=== PATIENT | female | born 1980 | race Caucasian/White ===

== ENCOUNTER 2018-04-06 14:17 | Inpatient (IN) | payer MEDICAID, SELFPAY ==
[2018-04-06 14:18] VITALS: BP 141/69; PULSE 102; RESP 16; TEMP 36.3; O2SAT 99; BMI 23.2
--- NOTE | 2018-04-06 15:31 | ED.VISSUMM ---
- ER Visit Summary Date of Service: 04/06/18 Chief Complaint: Left wrist swelling History of Present Illness: The patient is a 37 F who presents in the accompaniment of Elaina from [facility]. Patient is checking in for heroin detox. Patient injected heroin into her left volar wrist last night. This morning she had some mild erythema and swelling at the injection site. She notes minimally tender. No fevers. She believes is just related to extravasation of the heroin. She denies any other injuries or concerns. Physical Examination: Afebrile vital signs are stable There is 1/2 cm area of swelling over the volar wrist. The air does not move with movement of the fingers to suggest a ganglion cyst. There is minimal overlying erythema there is no lymphangitic streaking. It is not pulsatile. Emergency Department Course and Treatment: Bedside ultrasound does not demonstrate any significant debris in this fluid collection. There is no vascular flow in the fluid collection. At this point I think this is most likely local reaction to extravasation of the heroin outside the pain that she injected into. However given the erythema and the potential for infection we will go ahead and cover with Keflex and Bactrim. Hospitalist will be contacted to admit the patient to [facility]. Impression: 1. Local reaction/abscess left wrist to heroin 2. Heroin abuse This note was generated with [employer] dictation software. It may contain incorrect words, spelling, and punctuation that were not noted in review of the chart prior to signing ED Disposition - Plan for ED Patient: Chief Complaint: Abscess Referrals: Nelly Gerber, KEM-C [Primary Care Provider] -
--- NOTE | 2018-04-06 15:36 | ED.DCSUM_ITS ---
- ER Visit Summary Date of Service: 04/06/18 Chief Complaint: Left wrist swelling History of Present Illness: The patient is a 37 F who presents in the accompaniment of Elaina from [facility]. Patient is checking in for heroin detox. Patient injected heroin into her left volar wrist last night. This morning she had some mild erythema and swelling at the injection site. She notes minimally tender. No fevers. She believes is just related to extravasation of the heroin. She denies any other injuries or concerns. Physical Examination: Afebrile vital signs are stable There is 1/2 cm area of swelling over the volar wrist. The air does not move with movement of the fingers to suggest a ganglion cyst. There is minimal overlying erythema there is no lymphangitic streaking. It is not pulsatile. Emergency Department Course and Treatment: Bedside ultrasound does not demonstrate any significant debris in this fluid collection. There is no vascular flow in the fluid collection. At this point I think this is most likely local reaction to extravasation of the heroin outside the pain that she injected into. However given the erythema and the potential for infection we will go ahead and cover with Keflex and Bactrim. Hospitalist will be contacted to admit the patient to [facility]. Impression: 1. Local reaction/abscess left wrist to heroin 2. Heroin abuse This note was generated with [employer] dictation software. It may contain incorrect words, spelling, and punctuation that were not noted in review of the chart prior to signing ED Disposition - Plan for ED Patient: Chief Complaint: Abscess Referrals: Nelly Gerber, [facility] [Primary Care Provider] -
[2018-04-06] MEDS: Cephalexin 250 MG Capsule 500 MG PO (16:00)
[2018-04-06] MEDS: Smz/Tmp Ds Tablet 1 TABLET PO (16:00)
[2018-04-06 16:02] VITALS: BMI 23.2
[2018-04-06 16:46] VITALS: BP 118/79; PULSE 93; RESP 16; O2SAT 98
--- NOTE | 2018-04-06 16:52 | PCM.HP.STD ---
<Mary Pike - Last Filed: 04/06/18 17:17> Problem List (1) Depression Status: Chronic (2) Tobacco dependence Status: Chronic (3) Acute opioid withdrawal Status: Acute (4) Heroin dependence Status: Chronic (5) Insomnia Status: Chronic History of Present Illness Date of Admission: 04/06/18 Chief Complaint: Opioid withdrawal. The patient is a 37 year old F who presents to [facility] for opioid withdrawal. Patient was referred to ER from [facility] staff for evaluation of left wrist swelling. Patient states left wrist area of swelling occurred immediately during/after attempted heroin injection and she states she missed the vein. She denies pain in that area. No redness at site. Denies fever, chills. Patient currently uses heroin 1 g per day and has been using forearm approximately 4 years. She states she did have a 9 month period of sobriety following previous detox program approximately 1 year ago. Patient states her uses as well. She states he plans to get treatment after her and she hopes to leave the relationship at that time. Currently complains of nausea, abdominal cramping, restless legs and anxiety. She last used heroin last evening around 6 PM. She also admits to using marijuana occasionally. Denies other drug use or alcohol use. Her other past medical history includes tobacco dependence (half pack per day smoker), depression, anxiety, insomnia. Bedside ultrasound completed on left wrist without evidence of infectious etiology. She was however started on Keflex and Bactrim by ER. 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 Denies: Constipation, Diarrhea, Vomiting Genitourinary: Denies: Dysuria Musculoskeletal: Denies: Joint Pain, Joint Tenderness Skin: Reports: - - Lump/swelling left wrist. Denies: Rash, Wounds Neurological: Denies: Numbness, Tingling, Focal weakness Psychiatric: Reports: Anxiety, Depression Hematologic/ Lymphatic: Denies: Easy Bruising, Easy Bleeding VTE Information - Inpt Only VTE Present on Admission: No VTE Mechan Device Prophylaxis: None VTE Pharm Prophylaxis ordered?: No Reason prophylaxis not ordered:: Treatment Not Indicated - Physical Exam General: Alert, Oriented x3, Cooperative, No apparent distress HEENT: Atraumatic, PERRLA, EOMI, Normocephalic Oral: Moist Mucosa Neck: Supple, No JVD, Negative Carotid Bruits Lungs: Clear to auscultation, Normal air movement Cardiovascular: Normal S1, Normal S2, No murmurs, Tachycardic Abdomen: Bowel Sounds Present, Soft, Non Tender, Non-Distended Extremities: No clubbing, No cyanosis, No edema, Capillary Refill Less than 3 Seconds Skin: No rashes, No breakdown, - - Left wrist swelling/nodule. No redness, tenderness, drainage. Musculoskeletal: No Tenderness to Palpation of Joints or Extremities Neurological: Cranial nerves II-XII grossly intact, Neuro grossly intact Psych/Mental Status: Normal Affect, Appropriate Vital Signs Temp Pulse Resp BP Pulse Ox 97.3 F L 93 16 118/79 98 04/06/18 14:18 04/06/18 16:46 04/06/18 16:46 04/06/18 16:46 04/06/18 16:46 Oxygen Delivery Method Room Air Weight: 57.606 kg Body Mass Index (BMI) 23.2 Laboratory Tests Past 24 Hrs 04/06/18 16:35 WBC Cancelled Corrected WBC Cancelled RBC Cancelled Hgb Cancelled Hct Cancelled MCV Cancelled MCH Cancelled MCHC Cancelled RDW Cancelled RDW Differential Cancelled Plt Count Cancelled MPV Cancelled Immature Gran % (Auto) Cancelled Neut % (Auto) Cancelled Lymph % (Auto) Cancelled Marin[place] % (Auto) Cancelled Eos % (Auto) Cancelled Baso % (Auto) Cancelled Immature Gran # (Auto) Cancelled Absolute Neuts (auto) Cancelled Absolute Lymphs (auto) Cancelled Absolute Monos (auto) Cancelled Total Counted Cancelled Neutrophils % (Manual) Cancelled Band Neutrophils % Cancelled Lymphocytes % (Manual) Cancelled Monocytes % (Manual) Cancelled Eosinophils % (Manual) Cancelled Basophils % (Manual) Cancelled Metamyelocytes % Cancelled Myelocytes % Cancelled Promyelocytes % Cancelled Blast Cells % Cancelled Plasma Cell % (Manual) Cancelled Other Cells % Cancelled Lymphocytes # Cancelled Nucleated RBCs/100 WBC Cancelled Differential Comment Cancelled Diff Path Review Cancelled Hypersegmented Neuts Cancelled Atypical Lymphocytes Cancelled Reactive Lymphocytes Cancelled Smudge Cells Cancelled Eosinophilia # Cancelled Basophilia # Cancelled Toxic Granulation Cancelled Dohle Bodies Cancelled Tommie Rods Cancelled Platelet Estimate Cancelled Plt Morphology Comment Cancelled RBC Morphology Cancelled Polychromasia Cancelled Hypochromasia Cancelled Poikilocytosis Cancelled Basophilic Stippling Cancelled Anisocytosis Cancelled Microcytosis Cancelled Macrocytosis Cancelled Spherocytes Cancelled Sickle Cells Cancelled Target Cells Cancelled Tear Drop Cells Cancelled Ovalocytes Cancelled Stomatocytes Cancelled [place] Bodies Cancelled Minh Cells Cancelled Bite Cells Cancelled Acanthocytes (Spur) Cancelled Rouleaux Cancelled Schistocytes Cancelled Assessment/Plan All Active Problems Acute opioid withdrawal (Acute) 1. Acute opioid withdrawal with history of opioid abuse-medical stabilization per protocol. Unable to obtain lab work on admission due to poor veins. Patient currently uses heroin 1 g/day. She requests social work consult to discuss leaving her at discharge. Continue to monitor. 2. Tobacco dependence-encouraged smoking cessation. Nicotine replacement patch if desired. Denies need at this time. 3. Left wrist nodule/swelling-no signs of infection. Continue to monitor. No antibiotics necessary at this time. Bedside ultrasound and ER without evidence of infectious etiology. 4. Anxiety/depression-previously on regimen which she has no longer taking. Citalopram listed on home medication list. Patient states she is no longer taking. 5. Insomnia-continue home amitriptyline regimen. DVT prophylaxis-not indicated. This patient was seen by ALMA Hamlin under the supervision of Dr. Brown. <KevinKathy E - Last Filed: 04/06/18 17:31> History of Present Illness The patient is a 37 year old F [] Past Medical History Allergies No Known Allergies Allergy (Verified 04/04/17 12:15) - Physical Exam Vital Signs Temp Pulse Resp BP Pulse Ox 97.3 F L 91 14 116/64 99 04/06/18 14:18 04/06/18 17:17 04/06/18 17:17 04/06/18 17:17 04/06/18 17:17 Oxygen Delivery Method Room Air Weight: 127 lb Body Mass Index (BMI) 23.2 Laboratory Tests Past 24 Hrs 04/06/18 16:35 WBC Cancelled Corrected WBC Cancelled RBC Cancelled Hgb Cancelled Hct Cancelled MCV Cancelled MCH Cancelled MCHC Cancelled RDW Cancelled RDW Differential Cancelled Plt Count Cancelled MPV Cancelled Immature Gran % (Auto) Cancelled Neut % (Auto) Cancelled Lymph % (Auto) Cancelled Marin[place] % (Auto) Cancelled Eos % (Auto) Cancelled Baso % (Auto) Cancelled Immature Gran # (Auto) Cancelled Absolute Neuts (auto) Cancelled Absolute Lymphs (auto) Cancelled Absolute Monos (auto) Cancelled Total Counted Cancelled Neutrophils % (Manual) Cancelled Band Neutrophils % Cancelled Lymphocytes % (Manual) Cancelled Monocytes % (Manual) Cancelled Eosinophils % (Manual) Cancelled Basophils % (Manual) Cancelled Metamyelocytes % Cancelled Myelocytes % Cancelled Promyelocytes % Cancelled Blast Cells % Cancelled Plasma Cell % (Manual) Cancelled Other Cells % Cancelled Lymphocytes # Cancelled Nucleated RBCs/100 WBC Cancelled Differential Comment Cancelled Diff Path Review Cancelled Hypersegmented Neuts Cancelled Atypical Lymphocytes Cancelled Reactive Lymphocytes Cancelled Smudge Cells Cancelled Eosinophilia # Cancelled Basophilia # Cancelled Toxic Granulation Cancelled Dohle Bodies Cancelled Tommie Rods Cancelled Platelet Estimate Cancelled Plt Morphology Comment Cancelled RBC Morphology Cancelled Polychromasia Cancelled Hypochromasia Cancelled Poikilocytosis Cancelled Basophilic Stippling Cancelled Anisocytosis Cancelled Microcytosis Cancelled Macrocytosis Cancelled Spherocytes Cancelled Sickle Cells Cancelled Target Cells Cancelled Tear Drop Cells Cancelled Ovalocytes Cancelled Stomatocytes Cancelled [place] Bodies Cancelled Minh Cells Cancelled Bite Cells Cancelled Acanthocytes (Spur) Cancelled Rouleaux Cancelled Schistocytes Cancelled Assessment/Plan Hospitalist note: I am seeing this patient in conjunction with Mary Pike. I independently seen and examined the patient. History and physical above reviewed and I agree with admission and treatment plan. Patient came to the [facility] office requesting admission for medical stabilization for opiate withdrawal. She has more swelling at the site of the injection this morning, no evidence of abscess or infection. Her main symptoms was abdominal cramps, nausea, and anxiety and restless legs. She has been using IV heroin daily for the last 4 months. Before that, she was in remission for few months. Her vital signs are stable. - Physical Exam General: Alert, Oriented x3, Cooperative, No apparent distress. HEENT: Atraumatic, PERRLA, EOMI. Neck: Supple, No JVD, Negative Carotid Bruits, Trachea Midline, Thyroid Normal. Lungs: Clear to auscultation, Normal air movement, No rhonchi, No wheeze, No rales. Cardiovascular: Regular rate, Regular Rhythm, Normal S1, Normal S2, PMI Normal. Abdomen: Bowel Sounds Present, Soft, Non Tender, Non-Distended, No Hepato-splenomegaly. Extremities: No clubbing, No cyanosis, No edema Skin: No rashes, No breakdown Neurological: Neuro grossly intact Vital Signs are stable. Assessment and plan: #1 acute opioid withdrawal: Admit to [facility], initiate [facility] protocol with tapering course of Subutex, as needed Tylenol, Catapres, Bentyl, methocarbamol, Vistaril, Zofran, Seroquel and Requip, urine drug screen. #2 other chronic medical problems: Stable, continue current medications as above. This note was generated with [employer] dictation software. It may contain incorrect words, spelling, and punctuation that were not noted in checking the note before signing. Code Visit Inpatient E&M: 94791 Init Hosp L2
--- NOTE | 2018-04-06 17:02 | HP.PCM_ITS ---
<Mary Pike - Last Filed: 04/06/18 17:17> Problem List (1) Depression Status: Chronic (2) Tobacco dependence Status: Chronic (3) Acute opioid withdrawal Status: Acute (4) Heroin dependence Status: Chronic (5) Insomnia Status: Chronic History of Present Illness Date of Admission: 04/06/18 Chief Complaint: Opioid withdrawal. The patient is a 37 year old F who presents to [facility] for opioid withdrawal. Patient was referred to ER from [facility] staff for evaluation of left wrist swelling. Patient states left wrist area of swelling occurred immediately during/after attempted heroin injection and she states she missed the vein. She denies pain in that area. No redness at site. Denies fever, chills. Patient currently uses heroin 1 g per day and has been using forearm approximately 4 years. She states she did have a 9 month period of sobriety following previous detox program approximately 1 year ago. Patient states her uses as well. She states he plans to get treatment after her and she hopes to leave the relationship at that time. Currently complains of nausea, abdominal cramping, restless legs and anxiety. She last used heroin last evening around 6 PM. She also admits to using marijuana occasionally. Denies other drug use or alcohol use. Her other past medical history includes tobacco dependence (half pack per day smoker), depression, anxiety, insomnia. Bedside ultrasound completed on left wrist without evidence of infectious etiology. She was however started on Keflex and Bactrim by ER. Past Medical History Past Medical History (Chronic Problems): Chronic Problems Insomnia (Chronic) Depression (Chronic) Tobacco dependence (Chronic) Heroin dependence (Chronic) Allergies No Known Allergies Allergy (Verified 04/04/17 12:15) Home Medications: Ambulatory Orders Medication Instructions Recorded Citalopram [Celexa] 40 mg PO DAILY 04/04/17 Amitriptyline HCl 50 mg PO QHS 04/06/18 Surgical History: - - x2, tubal ligation Psychiatric History: Anxiety, Depression INFECTION CONTROL PRACTITIONER History: No pertinent INFECTION CONTROL PRACTITIONER history Lives: Spouse/ Significant Other Smoking Status: Current every day smoker Tobacco Use: Cigarettes Alcohol: None Drugs: Heroin - *Family History Maternal History Items: COPD, - - CHF Paternal History Items: Unknown Review of Systems Constitutional: Denies: Chills, Fever HEENT: Denies: Head Aches, Sinus Congestion, Sinus Drainage Cardiovascular: Denies: Chest Pain, Light Headedness, Palpitations, Syncope Respiratory: Denies: Cough, Shortness of breath at rest, Sputum production Gastrointestinal: Reports: Nausea, - - Abdominal cramping. Denies: Constipation , Diarrhea, Vomiting Genitourinary: Denies: Dysuria Musculoskeletal: Denies: Joint Pain, Joint Tenderness Skin: Reports: - - Lump/swelling left wrist. Denies: Rash, Wounds Neurological: Denies: Numbness, Tingling, Focal weakness Psychiatric: Reports: Anxiety, Depression Hematologic/ Lymphatic: Denies: Easy Bruising, Easy Bleeding VTE Information - Inpt Only VTE Present on Admission: No VTE Mechan Device Prophylaxis: None VTE Pharm Prophylaxis ordered?: No Reason prophylaxis not ordered:: Treatment Not Indicated - Physical Exam General: Alert, Oriented x3, Cooperative, No apparent distress HEENT: Atraumatic, PERRLA, EOMI, Normocephalic Oral: Moist Mucosa Neck: Supple, No JVD, Negative Carotid Bruits Lungs: Clear to auscultation, Normal air movement Cardiovascular: Normal S1, Normal S2, No murmurs, Tachycardic Abdomen: Bowel Sounds Present, Soft, Non Tender, Non-Distended Extremities: No clubbing, No cyanosis, No edema, Capillary Refill Less than 3 Seconds Skin: No rashes, No breakdown, - - Left wrist swelling/nodule. No redness, tenderness, drainage. Musculoskeletal: No Tenderness to Palpation of Joints or Extremities Neurological: Cranial nerves II-XII grossly intact, Neuro grossly intact Psych/Mental Status: Normal Affect, Appropriate Vital Signs Temp Pulse Resp BP Pulse Ox 97.3 F L 93 16 118/79 98 04/06/18 14:18 04/06/18 16:46 04/06/18 16:46 04/06/18 16:46 04/06/18 16:46 Oxygen Delivery Method Room Air Weight: 57.606 kg Body Mass Index (BMI) 23.2 Laboratory Tests Past 24 Hrs 04/06/18 16:35 WBC Cancelled Corrected WBC Cancelled RBC Cancelled Hgb Cancelled Hct Cancelled MCV Cancelled MCH Cancelled MCHC Cancelled RDW Cancelled RDW Differential Cancelled Plt Count Cancelled MPV Cancelled Immature Gran % (Auto) Cancelled Neut % (Auto) Cancelled Lymph % (Auto) Cancelled Ocean % (Auto) Cancelled Eos % (Auto) Cancelled Baso % (Auto) Cancelled Immature Gran # (Auto) Cancelled Absolute Neuts (auto) Cancelled Absolute Lymphs (auto) Cancelled Absolute Monos (auto) Cancelled Total Counted Cancelled Neutrophils % (Manual) Cancelled Band Neutrophils % Cancelled Lymphocytes % (Manual) Cancelled Monocytes % (Manual) Cancelled Eosinophils % (Manual) Cancelled Basophils % (Manual) Cancelled Metamyelocytes % Cancelled Myelocytes % Cancelled Promyelocytes % Cancelled Blast Cells % Cancelled Plasma Cell % (Manual) Cancelled Other Cells % Cancelled Lymphocytes # Cancelled Nucleated RBCs/100 WBC Cancelled Differential Comment Cancelled Diff Path Review Cancelled Hypersegmented Neuts Cancelled Atypical Lymphocytes Cancelled Reactive Lymphocytes Cancelled Smudge Cells Cancelled Eosinophilia # Cancelled Basophilia # Cancelled Toxic Granulation Cancelled Dohle Bodies Cancelled Tommie Rods Cancelled Platelet Estimate Cancelled Plt Morphology Comment Cancelled RBC Morphology Cancelled Polychromasia Cancelled Hypochromasia Cancelled Poikilocytosis Cancelled Basophilic Stippling Cancelled Anisocytosis Cancelled Microcytosis Cancelled Macrocytosis Cancelled Spherocytes Cancelled Sickle Cells Cancelled Target Cells Cancelled Tear Drop Cells Cancelled Ovalocytes Cancelled Stomatocytes Cancelled Hunter-Circle Bodies Cancelled Minh Cells Cancelled Bite Cells Cancelled Acanthocytes (Spur) Cancelled Rouleaux Cancelled Schistocytes Cancelled Assessment/Plan All Active Problems Acute opioid withdrawal (Acute) 1. Acute opioid withdrawal with history of opioid abuse-medical stabilization per protocol. Unable to obtain lab work on admission due to poor veins. Patient currently uses heroin 1 g/day. She requests social work consult to discuss leaving her at discharge. Continue to monitor. 2. Tobacco dependence-encouraged smoking cessation. Nicotine replacement patch if desired. Denies need at this time. 3. Left wrist nodule/swelling-no signs of infection. Continue to monitor. No antibiotics necessary at this time. Bedside ultrasound and ER without evidence of infectious etiology. 4. Anxiety/depression-previously on regimen which she has no longer taking. Citalopram listed on home medication list. Patient states she is no longer taking. 5. Insomnia-continue home amitriptyline regimen. DVT prophylaxis-not indicated. This patient was seen by ALMA Hamlin under the supervision of Dr. Brown. <KevinKathy E - Last Filed: 04/06/18 17:31> History of Present Illness The patient is a 37 year old F [] Past Medical History Allergies No Known Allergies Allergy (Verified 04/04/17 12:15) - Physical Exam Vital Signs Temp Pulse Resp BP Pulse Ox 97.3 F L 91 14 116/64 99 04/06/18 14:18 04/06/18 17:17 04/06/18 17:17 04/06/18 17:17 04/06/18 17:17 Oxygen Delivery Method Room Air Weight: 127 lb Body Mass Index (BMI) 23.2 Laboratory Tests Past 24 Hrs 04/06/18 16:35 WBC Cancelled Corrected WBC Cancelled RBC Cancelled Hgb Cancelled Hct Cancelled MCV Cancelled MCH Cancelled MCHC Cancelled RDW Cancelled RDW Differential Cancelled Plt Count Cancelled MPV Cancelled Immature Gran % (Auto) Cancelled Neut % (Auto) Cancelled Lymph % (Auto) Cancelled Ocean % (Auto) Cancelled Eos % (Auto) Cancelled Baso % (Auto) Cancelled Immature Gran # (Auto) Cancelled Absolute Neuts (auto) Cancelled Absolute Lymphs (auto) Cancelled Absolute Monos (auto) Cancelled Total Counted Cancelled Neutrophils % (Manual) Cancelled Band Neutrophils % Cancelled Lymphocytes % (Manual) Cancelled Monocytes % (Manual) Cancelled Eosinophils % (Manual) Cancelled Basophils % (Manual) Cancelled Metamyelocytes % Cancelled Myelocytes % Cancelled Promyelocytes % Cancelled Blast Cells % Cancelled Plasma Cell % (Manual) Cancelled Other Cells % Cancelled Lymphocytes # Cancelled Nucleated RBCs/100 WBC Cancelled Differential Comment Cancelled Diff Path Review Cancelled Hypersegmented Neuts Cancelled Atypical Lymphocytes Cancelled Reactive Lymphocytes Cancelled Smudge Cells Cancelled Eosinophilia # Cancelled Basophilia # Cancelled Toxic Granulation Cancelled Dohle Bodies Cancelled Tommie Rods Cancelled Platelet Estimate Cancelled Plt Morphology Comment Cancelled RBC Morphology Cancelled Polychromasia Cancelled Hypochromasia Cancelled Poikilocytosis Cancelled Basophilic Stippling Cancelled Anisocytosis Cancelled Microcytosis Cancelled Macrocytosis Cancelled Spherocytes Cancelled Sickle Cells Cancelled Target Cells Cancelled Tear Drop Cells Cancelled Ovalocytes Cancelled Stomatocytes Cancelled Hunter-Circle Bodies Cancelled [place] Cells Cancelled Bite Cells Cancelled Acanthocytes (Spur) Cancelled Rouleaux Cancelled Schistocytes Cancelled Assessment/Plan Hospitalist note: I am seeing this patient in conjunction with Mary Pike. I independently seen and examined the patient. History and physical above reviewed and I agree with admission and treatment plan. Patient came to the [facility] office requesting admission for medical stabilization for opiate withdrawal. She has more swelling at the site of the injection this morning, no evidence of abscess or infection. Her main symptoms was abdominal cramps, nausea, and anxiety and restless legs. She has been using IV heroin daily for the last 4 months. Before that, she was in remission for few months. Her vital signs are stable. - Physical Exam General: Alert, Oriented x3, Cooperative, No apparent distress. HEENT: Atraumatic, PERRLA, EOMI. Neck: Supple, No JVD, Negative Carotid Bruits, Trachea Midline, Thyroid Normal. Lungs: Clear to auscultation, Normal air movement, No rhonchi, No wheeze, No rales. Cardiovascular: Regular rate, Regular Rhythm, Normal S1, Normal S2, PMI Normal. Abdomen: Bowel Sounds Present, Soft, Non Tender, Non-Distended, No Hepato- splenomegaly. Extremities: No clubbing, No cyanosis, No edema Skin: No rashes, No breakdown Neurological: Neuro grossly intact Vital Signs are stable. Assessment and plan: #1 acute opioid withdrawal: [facility], initiate [facility] protocol with tapering course of Subutex, as needed Tylenol, Catapres, Bentyl, methocarbamol, Vistaril, Zofran, Seroquel and Requip, urine drug screen. #2 other chronic medical problems: Stable, continue current medications as above. This note was generated with [employer] dictation software. It may contain incorrect words, spelling, and punctuation that were not noted in checking the note before signing. Code Visit Inpatient E&M: 15794 Init Hosp L2
--- NOTE | 2018-04-06 17:08 | DT_ITS ---
This patient was seen during an EMR downtime March 30, 2018 - April 06, 2018. This patient may have a combination of paper and electronic documentation or all paper documentation. All documentation is viewable within the e-chart portion of [facility] for each patient visit.
[2018-04-06 17:17] VITALS: BP 116/64; PULSE 91; RESP 14; O2SAT 99
[2018-04-06 17:50] VITALS: BMI 23.3
[2018-04-06 17:55] VITALS: BP 108/58; PULSE 84; RESP 16; TEMP 37; O2SAT 98
--- NOTE | 2018-04-06 18:30 | NURSING ---
spoke with nursing service crew supervisor Adia regarding unable to transfer orders- Dr. Brown indicates he is not on the computer entering any order for this pt.
--- NOTE | 2018-04-06 19:03 | NURSING ---
spoke with Incident command regarding accessing orders- Adia RN states to wait for 30 minutes and attempt to access orders again.
[2018-04-06] MEDS: Buprenorphine HCl 2 MG TAB.SUBL SL (19:46)
[2018-04-06] MEDS: QUEtiapine 25 MG Tablet PO (19:54)
[2018-04-06] MEDS: Dicyclomine 10 MG Capsule 20 MG PO (19:54)
[2018-04-06 20:09] VITALS: BP 115/66; PULSE 83; RESP 16; TEMP 36.8
[2018-04-06] MEDS: Ondansetron ODT 4 MG Tablet PO (20:51)
[2018-04-06] MEDS: Pramipexole Di-HCl 0.25 MG Tablet PO (20:54)
[2018-04-06] MEDS: Methocarbamol 750 MG Tablet PO (20:54)
[2018-04-06] MEDS: Amitriptyline 25 MG Tablet 50 MG PO (20:58)
[2018-04-06] MEDS: Ibuprofen 400 MG Tablet 800 MG PO (23:53)
[2018-04-06] MEDS: hydrOXYzine PAM 25 MG Capsule 50 MG PO (23:53)
--- NOTE | 2018-04-07 00:08 | NURSING ---
Pt very restless, pacing around in room. Pt had vomited in shower earlier, and is heaving over toilet. Pt denies any other substance abuse, including alcohol. She claims she only uses heroin and sometimes marijuana.
[2018-04-07 00:21] LABS: Amphetamine Urine VISTA NEGATIVE (<1000 ng/mL); Barbiturate Urine VISTA NEGATIVE (< 200 ng/mL); Benzodiazepine Urine VISTA NEGATIVE (< 200 ng/mL); Cocaine Urine VISTA NEGATIVE (< 300 ng/mL); Ecstacy Urine VISTA NEGATIVE (< 500 ng/mL); Methadone Urine VISTA NEGATIVE (< 300 ng/mL); PCP Urine VISTA NEGATIVE (< 25 ng/mL); THC Urine VISTA POSITIVE (< 50 ng/mL); Vista UDS pH Range 6
[2018-04-07 00:30] VITALS: BP 123/73; PULSE 106; RESP 20; TEMP 36.7
[2018-04-07] MEDS: chlordiazePOXIDE 25 MG Capsule PO ×3 (00:37→22:22)
[2018-04-07] MEDS: Buprenorphine HCl 2 MG TAB.SUBL SL (03:58)
[2018-04-07 04:00] VITALS: BP 107/66; PULSE 80; RESP 16; TEMP 36.9
[2018-04-07] MEDS: Methocarbamol 750 MG Tablet PO ×3 (04:04→22:21)
--- NOTE | 2018-04-07 06:56 | PN_ITS ---
Subjective: Patient was seen and examined. Admitted on 04/06/2018 for medical stabilization under the [facility] protocol. Complains of severe leg cramps, restless legs, hot and cold flashes worse yesterday. Believes that the Subutex makes it worse. Admits to nausea but no vomiting Vitals/I&O's: Vital Signs Temp Pulse Resp BP Pulse Ox 98.5 F 80 16 107/66 98 04/07/18 04:00 04/07/18 04:00 04/07/18 04:00 04/07/18 04:00 04/06/18 17:55 Weight: 58 kg Body Mass Index (BMI) 23.3 General: Alert, Oriented x3, Cooperative, No apparent distress HEENT: Atraumatic, PERRLA, EOMI, Normocephalic Oral: Moist Mucosa Neck: Supple Lungs: Clear to auscultation, Normal air movement Cardiovascular: Regular rate, Regular Rhythm, Normal S1, Normal S2, No murmurs Abdomen: Bowel Sounds Present, Soft, Non Tender, Non-Distended, No Hepato- splenomegaly Extremities: No edema, - - Left medial wrist swelling is much better without erythema or tenderness Skin: No rashes, No breakdown Musculoskeletal: No Tenderness to Palpation of Joints or Extremities Lymphatic: No Cervical, Supraclavicular, or Inguinal Adenopathy Neurological: Cranial nerves II-XII grossly intact Psych/Mental Status: Normal Affect, Appropriate Laboratory Results 04/06/18 23:00: Urine Opiates Screen POSITIVE H, Urine Methadone Screen NEGATIVE , Ur Barbiturates Screen NEGATIVE, Ur Phencyclidine Scrn NEGATIVE, Ur Amphetamines Screen NEGATIVE, U Methamphetamin-MDMA NEGATIVE, U Benzodiazepines Scrn NEGATIVE, Urine Cocaine Screen NEGATIVE, U Cannabinoids Screen POSITIVE H, Ur Drug Screen Comment Current Medications Acetaminophen (Tylenol) 500 mg PO Q4H PRN PRN PRN Reason: Temp > 100.4 F Amitriptyline HCl (Elavil) 50 mg PO QHS LILLY Last Admin: 04/06/18 20:58 Dose: 50 mg Buprenorphine HCl (Buprenorphine Hcl) 4 mg SL Q8H LILLY PRN Reason: Taper Stop: 04/09/18 23:59 Last Admin: 04/07/18 03:58 Dose: 4 mg Chlordiazepoxide (Librium) 25 mg PO Q4H PRN PRN Reason: ANXIETY Last Admin: 04/07/18 00:37 Dose: 25 mg Citalopram Hydrobromide (Celexa) 40 mg PO DAILY LILLY Clonidine (Catapres) 0.1 mg PO Q2H PRN PRN PRN Reason: Hot/Cold Sweats or Anxiety Dicyclomine HCl (Bentyl) 20 mg PO Q6H PRN PRN PRN Reason: Abdomnial Discomfort Last Admin: 04/06/18 19:54 Dose: 20 mg Hydroxyzine Pamoate (Vistaril Pamoate Capsule) 50 mg PO Q6H PRN PRN PRN Reason: Mild Anxiety (score 1/3) Last Admin: 04/06/18 23:53 Dose: 50 mg Ibuprofen (Motrin) 800 mg PO Q8H PRN PRN PRN Reason: PAIN Last Admin: 04/06/18 23:53 Dose: 800 mg Methocarbamol (Methocarbamol) 750 mg PO Q6H PRN PRN PRN Reason: Muscle Aches Last Admin: 04/07/18 04:04 Dose: 750 mg Ondansetron HCl (Zofran Odt) 4 mg PO Q6H PRN PRN PRN Reason: NAUSEA Last Admin: 04/06/18 20:51 Dose: 4 mg Pramipexole Dihydrochloride (Mirapex) 0.25 mg PO Q12H PRN PRN PRN Reason: Restless Legs Last Admin: 04/06/18 20:54 Dose: 0.25 mg Quetiapine Fumarate (Seroquel) 25 mg PO Q6H PRN PRN PRN Reason: Moderate Anxiety (score 2/3) Last Admin: 04/06/18 19:54 Dose: 25 mg Medical Necessity - Tobacco Use Smoking Status: Current every day smoker Tobacco Use: Cigarettes Assessment/Plan All Active Problems Acute opioid withdrawal (Acute) 37-year-old with past medical history of anxiety/depression, chronic heroine dependence comes in with acute opiate withdrawal symptoms for medical stabilization the [facility] protocol. 1. Acute opioid withdrawal with history of opioid abuse(heroin), stable, on the opiate withdrawal protocol under the [facility] program, continue to monitor. 2. Tobacco use disorder, encourage smoking cessation 3. Left wrist nodule/swelling-no signs of infection, stable 4. Anxiety/depression, on Celexa per home med list, patient denies being on it. 5. Insomnia, continue home amitriptyline regimen. 6. DVT prophylaxis-not indicated. Code Visit Inpatient E&M: 05114 Subs Hosp L2
[2018-04-07] MEDS: Ondansetron ODT 4 MG Tablet PO ×2 (07:26→22:22)
--- NOTE | 2018-04-07 09:46 | CASEMGMT ---
Social Work Note Charge Nurse Yasmine updated this worker that CM consult was put in as pt wants to leave and her is drug user. Pt is in [facility] program. JACKLYN updated Elaina, investor relations coordinator, for [facility]. Elaina in to ask pt if she would like to talk to this worker about resources that she may need. Elaina updated this worker that pt denied wanting to talk to this worker stating that pt was considering leaving but is nothing official at this time. Pt denied additional needs or concerns. Plan: Return home at discharge with any [facility] resources that is provided for pt Joan Ventura MILL HOUSE SUPERVISOR, IT BUSINESS SYSTEMS ANALYST
[2018-04-07 10:00] VITALS: BP 124/73; PULSE 87; RESP 18; TEMP 37.1
[2018-04-07] MEDS: Citalopram 40 MG TABLET PO (10:11)
[2018-04-07] MEDS: Dicyclomine 10 MG Capsule 20 MG PO ×2 (13:03→22:22)
[2018-04-07] MEDS: Ibuprofen 400 MG Tablet 800 MG PO (13:03)
[2018-04-07 14:00] VITALS: BP 138/78; PULSE 95; RESP 18; TEMP 37.1
[2018-04-07] MEDS: QUEtiapine 25 MG Tablet PO (14:28)
[2018-04-07 18:00] VITALS: BP 115/72; PULSE 92; RESP 18; TEMP 37.2
[2018-04-07 22:00] VITALS: BP 136/77; PULSE 89; RESP 16; TEMP 36.5
[2018-04-07] MEDS: Pramipexole Di-HCl 0.25 MG Tablet PO (22:21)
[2018-04-07] MEDS: Amitriptyline 25 MG Tablet 50 MG PO (22:22)
[2018-04-08 06:28] VITALS: BP 116/74; PULSE 92; RESP 16; TEMP 36.8
[2018-04-08] MEDS: Ibuprofen 400 MG Tablet 800 MG PO (06:28)
--- NOTE | 2018-04-08 08:29 | PN_ITS ---
Subjective: He was seen and examined. No acute events. Feels improved. Patient refusing Subutex and Catapres. Patient is going to follow-up with an outpatient program on discharge. Denies any chest pain no dizziness or fever or chills. Objective: Physical exam: General: Alert, Oriented x3, Cooperative, No apparent distress HEENT: Atraumatic, PERRLA, EOMI, Normocephalic Oral: Moist Mucosa Neck: Supple Lungs: Clear to auscultation, Normal air movement Cardiovascular: Regular rate, Regular Rhythm, Normal S1, Normal S2, No murmurs Abdomen: Bowel Sounds Present, Soft, Non Tender, Non-Distended, No Hepato- splenomegaly Extremities: No edema, - - Left medial wrist swelling is much better without erythema or tenderness Skin: No rashes, No breakdown Musculoskeletal: No Tenderness to Palpation of Joints or Extremities Lymphatic: No Cervical, Supraclavicular, or Inguinal Adenopathy Neurological: Cranial nerves II-XII grossly intact Psych/Mental Status: Normal Affect, Appropriate Vitals/I&O's: Vital Signs Temp Pulse Resp BP Pulse Ox 98.2 F 92 16 116/74 98 04/08/18 06:28 04/08/18 06:28 04/08/18 06:28 04/08/18 06:28 04/06/18 17:55 Oxygen Delivery Method Room Air Weight: 58 kg Body Mass Index (BMI) 23.3 Intake and Output for Last 24 Hours 04/06/18 04/07/18 04/08/18 23:59 23:59 23:59 Intake Total 1550 / 1550 550 / 550 Balance 1550 / 1550 550 / 550 Current Medications Acetaminophen (Tylenol) 500 mg PO Q4H PRN PRN PRN Reason: Temp > 100.4 F Amitriptyline HCl (Elavil) 50 mg PO QHS LILLY Last Admin: 04/07/18 22:22 Dose: 50 mg Buprenorphine HCl (Buprenorphine Hcl) 2 mg SL Q8H LILLY PRN Reason: Taper Stop: 04/09/18 23:59 Last Admin: 04/08/18 04:34 Dose: Not Given Chlordiazepoxide (Librium) 25 mg PO Q4H PRN PRN Reason: ANXIETY Last Admin: 04/07/18 22:22 Dose: 25 mg Citalopram Hydrobromide (Celexa) 40 mg PO DAILY LILLY Last Admin: 04/07/18 10:11 Dose: 40 mg Clonidine (Catapres) 0.1 mg PO Q2H PRN PRN PRN Reason: Hot/Cold Sweats or Anxiety Dicyclomine HCl (Bentyl) 20 mg PO Q6H PRN PRN PRN Reason: Abdomnial Discomfort Last Admin: 04/07/18 22:22 Dose: 20 mg Hydroxyzine Pamoate (Vistaril Pamoate Capsule) 50 mg PO Q6H PRN PRN PRN Reason: Mild Anxiety (score 1/3) Last Admin: 04/06/18 23:53 Dose: 50 mg Ibuprofen (Motrin) 800 mg PO Q8H PRN PRN PRN Reason: PAIN Last Admin: 04/08/18 06:28 Dose: 800 mg Methocarbamol (Methocarbamol) 750 mg PO Q6H PRN PRN PRN Reason: Muscle Aches Last Admin: 04/07/18 22:21 Dose: 750 mg Ondansetron HCl (Zofran Odt) 4 mg PO Q6H PRN PRN PRN Reason: NAUSEA Last Admin: 04/07/18 22:22 Dose: 4 mg Pramipexole Dihydrochloride (Mirapex) 0.25 mg PO Q12H PRN PRN PRN Reason: Restless Legs Last Admin: 04/07/18 22:21 Dose: 0.25 mg Quetiapine Fumarate (Seroquel) 25 mg PO Q6H PRN PRN PRN Reason: Moderate Anxiety (score 2/3) Last Admin: 04/07/18 14:28 Dose: 25 mg Medical Necessity - Tobacco Use Smoking Status: Current every day smoker Tobacco Use: Cigarettes Assessment/Plan All Active Problems Acute opioid withdrawal (Acute) 37-year-old with past medical history of anxiety/depression, chronic heroine dependence comes in with acute opiate withdrawal symptoms for medical stabilization the [facility] protocol. 1. Acute opioid withdrawal with history of opioid abuse(heroin), stable, on the opiate withdrawal protocol under the [facility] program, continue to monitor. 2. Tobacco use disorder, encourage smoking cessation 3. Left wrist nodule/swelling-no signs of infection, stable 4. Anxiety/depression, on Celexa 5. Insomnia, on amitriptyline 6. DVT prophylaxis-not indicated. Code Visit Inpatient E&M: 64759 Subs Hosp L2
[2018-04-08 10:03] VITALS: BP 128/76; PULSE 88; RESP 16; TEMP 37
[2018-04-08] MEDS: Dicyclomine 10 MG Capsule 20 MG PO (10:21)
[2018-04-08] MEDS: Citalopram 40 MG TABLET PO (10:21)
[2018-04-08] MEDS: chlordiazePOXIDE 25 MG Capsule PO (10:21)
[2018-04-08] MEDS: Pramipexole Di-HCl 0.25 MG Tablet PO ×2 (10:22→22:29)
[2018-04-08] MEDS: Methocarbamol 750 MG Tablet PO ×2 (11:22→19:47)
[2018-04-08] MEDS: QUEtiapine 25 MG Tablet PO ×2 (13:19→19:46)
[2018-04-08 13:20] VITALS: BP 138/80; PULSE 100; RESP 18; TEMP 36.9
[2018-04-08 19:33] VITALS: BP 132/87; PULSE 107; RESP 16; TEMP 37.1
[2018-04-08] MEDS: Amitriptyline 25 MG Tablet 50 MG PO (19:46)
[2018-04-08] MEDS: Ondansetron ODT 4 MG Tablet PO (19:46)
[2018-04-08] MEDS: hydrOXYzine PAM 25 MG Capsule 50 MG PO (22:29)
[2018-04-09 02:37] VITALS: BP 124/91; PULSE 95; RESP 16; TEMP 36.8
[2018-04-09] MEDS: chlordiazePOXIDE 25 MG Capsule PO (02:39)
[2018-04-09] MEDS: QUEtiapine 25 MG Tablet PO (02:39)
--- NOTE | 2018-04-09 08:25 | PCM.DC ---
- Discharge Diagnoses Current Active Problems: Current Active and Chronic Problems Insomnia (Chronic) Reason(s) for Visit for Discharge Instructions: Acute opiate withdrawal You will use the following diet at home:: Regular Your food should be the consistency of: Regular Your liquids should be the consistency of: Regular/Thin Discharge Activity: Return to Normal Activity Additional Instructions: Continue with all your medications. You are advised to quit using illicit drugs. Follow-up with the outpatient drug program as planned. Allergies/Adverse Reactions: Allergies No Known Allergies Allergy (Verified 04/04/17 12:15) Medications to take at Discharge Citalopram [Celexa] 40 mg PO DAILY 04/04/17 Amitriptyline HCl 50 mg PO QHS 04/06/18 Primary Care Physician: Nelly Gerber NP-C [Primary Care Provider] - Please follow up with your Primary Care Physician in: within 2 weeks Proposed Discharge Date: 04/09/18
[2018-04-09 08:26] VITALS: BP 135/86; PULSE 108; RESP 16; TEMP 37.3; O2SAT 97
--- NOTE | 2018-04-09 08:27 | PCM.DC.SUM ---
Discharge Date and Diagnosis Date of Admission: 04/06/18 Date of Discharge: 04/09/18 - Primary Discharge Diagnosis Acute opiate withdrawal - Secondary Discharge Diagnosis Chronic Problems Insomnia (Chronic) Depression (Chronic) Tobacco dependence (Chronic) Heroin dependence (Chronic) Hospital Course and Treatment None Operations: None Procedures: None Summary of Care Provided: 37-year-old with past medical history of anxiety/depression, chronic heroin dependence comes in with acute opiate withdrawal symptoms for medical stabilization the [facility] protocol. 1. Acute opioid withdrawal with history of opioid abuse(heroin),managed on the opiate withdrawal protocol under the [facility] program, will continue in the outpatient drug rehab program. 2. Tobacco use disorder, encourage smoking cessation 3. Left wrist nodule/swelling-no signs of infection 4. Anxiety/depression, on Celexa 5. Insomnia, on amitriptyline Discharge Diet: No Restrictions Discharge Activity: Return to Normal Activity Home Medications: Medications to take at Discharge Citalopram [Celexa] 40 mg PO DAILY 04/04/17 Amitriptyline HCl 50 mg PO QHS 04/06/18 Primary Care Physician: Nelly Gerber NP-C [Primary Care Provider] - Please follow up with your Primary Care Physician in: within 2 weeks Disposition: Home Minutes spent on discharge:: 35 Patient Condition:: Stable Medical Necessity - Tobacco Use Smoking Status: Current every day smoker Tobacco Use: Cigarettes Meaningful Use Info Meaningful Use Diagnoses (Choose all that apply): None applicable Code Visit Inpatient E&M: 13850 Disch Hosp
[2018-04-09 08:29] VITALS: BP 135/86; PULSE 108; RESP 16; TEMP 37.3; O2SAT 97
== END 2018-04-09 08:40 | disposition home or self-care (01) | DRG 434 ==
LOC: ED 15:39 → MS3 17:29
PROVIDERS: Admitting Provider Hospitalist; Emergency Provider Emergency Medicine; Family Provider Nurse Practitioner Adult Health; PCP Nurse Practitioner Adult Health; Visit Provider Internal Medicine
DX: F11.23 Opioid dependence with withdrawal (principal); L02.414 Cutaneous abscess of left upper limb; G47.00 Insomnia, unspecified; F32.9 Major depressive disorder, single episode, unspecified; F41.9 Anxiety disorder, unspecified; F17.210 Nicotine dependence, cigarettes, uncomplicated; Z79.899 Other long term (current) drug therapy
CPT/HCPCS: 80307; 99283